=== PATIENT | male | born 1980 | race American Indian/Alaskan Native ===

== ENCOUNTER 2021-12-20 22:19 | Emergency (ER) | payer SELFPAY ==
[2021-12-21] MEDS ORDERED: CYCLOBENZAPRINE 10 MG TAB PO ONE (09:00)
[2021-12-21] MEDS ORDERED: KETOROLAC 10 MG TAB PO ONE (09:00)
[2021-12-21] MEDS ORDERED: ACETAMINOPHEN W/CODEINE 300-30 MG TAB PO ONE (09:01)
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
[2021-12-21 09:34] VITALS: BP 103/62
== END 2021-12-21 09:58 | disposition home or self-care (01) ==
LOC: ED 22:19
DX: M79.672 Pain in left foot (principal); R07.89 Other chest pain; V89.2XXA Person injured in unspecified motor-vehicle accident, traffic, initial encounter; Y93.89 Activity, other specified; Y92.89 Other specified places as the place of occurrence of the external cause; Y99.8 Other external cause status
CPT/HCPCS: 99283